=== PATIENT | male | born 1950 | race Caucasian/White ===

== ENCOUNTER 2021-11-21 18:02 | Inpatient (IN) | payer OTHER, MEDICARE ==
[~2021-11-21] VITALS: Ht 175.3 cm; Wt 131.5 kg
[2021-11-21] MEDS ORDERED: SODIUM CHLORIDE 0.9% 1000ML 1,000 ML IV STA (18:29)
[2021-11-21] MEDS ORDERED: Vancomycin IV 1.25 GM in SODIUM CHLORIDE 0.9% 250ML 250 ML IV ONE (18:30)
[2021-11-21] MEDS ORDERED: SODIUM CHLORIDE 0.9% 100 ML ONE (19:14)
[2021-11-21] MEDS ORDERED: PIPERACILLIN/TAZOBACTAM 3.375 GM VIAL ONE (19:14)
[2021-11-21] MEDS ORDERED: SODIUM CHLORIDE 0.9% 1000ML 1,000 ML ONE (19:14)
[2021-11-21] MEDS ORDERED: HYDROCODONE/APAP 5MG-325MG TAB PO ONE (20:00)
[2021-11-21] MEDS ORDERED: Vancomycin IV 1 GM VIAL ONE (20:03)
[2021-11-21] MEDS ORDERED: HYDROCODONE/APAP 5MG-325MG TAB ONE (20:16)
[2021-11-21] MEDS ORDERED: SODIUM CHLORIDE FLUSH 10 ML SYR INJ PRN (20:30)
[2021-11-21] MEDS ORDERED: DEXTROSE 50% SYRINGE 50 ML IV PRN (20:45)
[2021-11-21] MEDS ORDERED: ALBUTEROL1.25 MG/3 NEB (20:53)
[2021-11-21] MEDS ORDERED: FUROSEMIDE40 MG PO (20:53)
[2021-11-21] MEDS ORDERED: ENTRESTO 24 MG1 EACH PO (20:53)
[2021-11-21] MEDS ORDERED: ASPIRIN81 MG PO (20:53)
[2021-11-21] MEDS ORDERED: NEURONTIN300 MG PO (20:53)
[2021-11-21] MEDS ORDERED: CLOPIDOGREL75 MG PO (20:53)
[2021-11-21] MEDS ORDERED: BUMETANIDE1 MG PO (20:53)
[2021-11-21] MEDS ORDERED: LIPITOR20 MG PO (20:53)
[2021-11-21] MEDS ORDERED: GLIPIZIDE5 MG PO (20:53)
[2021-11-21] MEDS ORDERED: RANEXA1000 MG PO (20:53)
[2021-11-21] MEDS: INSULIN LISPRO 100 UNIT/1 ML 3ML VIAL SQ SCH (21:00)
[2021-11-21 22:05] VITALS: BP 130/59
[2021-11-21 22:10] VITALS: BP 130/59
[2021-11-21 22:15] VITALS: BP 130/59
[2021-11-21] MEDS: HYDROMORPHONE 1MG/1ML INJ IV PRN (22:15)
[2021-11-21] MEDS: ONDANSETRON HCL INJ 2MG/ML 2ML 2 MG/ML VIAL IV PRN (22:15)
[2021-11-21] MEDS ORDERED: ALBUTEROL SULFATE HFA 8GM INHALATION AEROSOL INH PRN (22:15)
[2021-11-21] MEDS ORDERED: Vancomycin IV 1 GM in SODIUM CHLORIDE 0.9% 250ML 250 ML IV SCH (22:15)
[2021-11-21] MEDS ORDERED: NOVOLOG100 UNIT/1 SC (22:47)
[2021-11-21] MEDS ORDERED: LANTUS 3ML100 UNITS/ SQ (22:47)
[2021-11-21] MEDS: INSULIN GLARGINE 100 UNITS/ML VIAL SQ SCH (23:00)
[2021-11-22] VITALS (7 sets, daily range): BP systolic 86–108; BP diastolic 42–55
[2021-11-22] MEDS ORDERED: MUCINEX600 MG PO (01:17)
[2021-11-22] MEDS ORDERED: NAPROXEN250 MG PO (01:17)
[2021-11-22] MEDS ORDERED: RANEXA500 MG PO (01:17)
[2021-11-22] MEDS ORDERED: PROVENTIL HFA6.7 GM INH (01:17)
[2021-11-22] MEDS: ONDANSETRON HCL INJ 2MG/ML 2ML 2 MG/ML VIAL IV PRN ×4 (03:00→22:00)
[2021-11-22] MEDS: HYDROMORPHONE 1MG/1ML INJ IV PRN ×5 (03:00→22:00)
[2021-11-22] MEDS: HYDROCODONE/APAP 5MG-325MG TAB PO PRN ×2 (05:37→12:04)
[2021-11-22] MEDS: INSULIN LISPRO 100 UNIT/1 ML 3ML VIAL SQ SCH ×4 (08:30→21:00)
[2021-11-22] MEDS: Vancomycin IV 1 GM in SODIUM CHLORIDE 0.9% 250ML 250 ML IV SCH (08:56)
[2021-11-22] MEDS: BUMETANIDE 1 MG TAB PO SCH ×2 (08:57→17:08)
[2021-11-22] MEDS: ASPIRIN 81 MG CHEW TAB PO SCH (08:57)
[2021-11-22] MEDS: VALSARTAN/SACUBITRIL 24MG/26MG 1 EA TAB PO SCH ×2 (08:58→17:08)
[2021-11-22] MEDS: RANOLAZINE 500 MG TABSR PO SCH ×2 (09:00→17:08)
[2021-11-22] MEDS ORDERED: GLIPIZIDE 5 MG TAB PO SCH (09:00)
[2021-11-22] MEDS ORDERED: GABAPENTIN 300 MG CAP PO SCH (09:00)
[2021-11-22] MEDS: CLOPIDOGREL BISULFATE 75 MG TAB PO SCH (09:00)
[2021-11-22 09:04] LABS: BASOPHILS # (AUTO) 0.1 (0.0-0.1); BASOPHILS % 0.7 % (0.0-1.0); EOSINOPHILS # (AUTO) 0.3 (0.0-0.4); EOSINOPHILS % 2.3 % (0.0-6.0); HEMATOCRIT 33.7 % (38.2-49.6); HEMOGLOBIN 10.9 g/dL (14.0-18.0); LYMPHOCYTES # (AUTO) 1.8 (1.0-3.2); LYMPHOCYTES % 12.4 % (18.0-39.1); MEAN CORPUSCULAR HGB CONC 32.3 g/dL (31-35); MEAN CORPUSCULAR VOLUME 98.8 fL (81-99); MONOCYTES # (AUTO) 0.9 (0.2-0.8); MONOCYTES % 6.1 % (4.4-11.3); NEUTROPHILS # (AUTO) 11.5 (2.1-6.9); NEUTROPHILS % 77.8 % (38.7-80.0); PLATELET COUNT 399 x10e3/uL (140-360); RED BLOOD COUNT 3.41 x10e6/uL (4.3-5.7)
[2021-11-22 09:23] LABS: ANION GAP 12.5 mmol/L (8-16); CALCIUM 8.8 mg/dL (8.4-10.2); CREATININE, SERUM 1.44 mg/dL (0.72-1.25); POTASSIUM 3.5 mmol/L (3.5-5.1)
[2021-11-22] MEDS ORDERED: HYDROMORPHONE 2MG/ML 2 MG/ML ML IV ONE (11:00)
[2021-11-22] MEDS: FUROSEMIDE 40 MG TAB PO SCH (17:08)
[2021-11-22] MEDS: GABAPENTIN 300 MG CAP PO SCH ×2 (17:08→21:43)
[2021-11-22] MEDS: ATORVASTATIN 20 MG TAB PO SCH (21:43)
[2021-11-22] MEDS: INSULIN GLARGINE 100 UNITS/ML VIAL SQ SCH (22:00)
[2021-11-23] VITALS (7 sets, daily range): BP systolic 89–113; BP diastolic 47–69
[2021-11-23] MEDS ORDERED: GLIPIZIDE 5 MG TAB PO SCH (07:30)
[2021-11-23] MEDS: INSULIN LISPRO 100 UNIT/1 ML 3ML VIAL SQ SCH ×4 (07:30→21:00)
[2021-11-23] MEDS: ONDANSETRON HCL INJ 2MG/ML 2ML 2 MG/ML VIAL IV PRN (08:15)
[2021-11-23] MEDS: HYDROMORPHONE 1MG/1ML INJ IV PRN ×3 (08:15→18:35)
[2021-11-23] MEDS: Vancomycin IV 1 GM in SODIUM CHLORIDE 0.9% 250ML 250 ML IV SCH (10:26)
[2021-11-23] MEDS: ASPIRIN 81 MG CHEW TAB PO SCH (10:27)
[2021-11-23] MEDS: BUMETANIDE 1 MG TAB PO SCH ×2 (10:27→17:24)
[2021-11-23] MEDS: VALSARTAN/SACUBITRIL 24MG/26MG 1 EA TAB PO SCH ×2 (10:30→17:00)
[2021-11-23] MEDS: FUROSEMIDE 40 MG TAB PO SCH (10:30)
[2021-11-23] MEDS: CLOPIDOGREL BISULFATE 75 MG TAB PO SCH (10:31)
[2021-11-23] MEDS: GABAPENTIN 300 MG CAP PO SCH ×3 (10:31→21:00)
[2021-11-23] MEDS: RANOLAZINE 500 MG TABSR PO SCH ×2 (10:31→17:00)
[2021-11-23] MEDS: INSULIN GLARGINE 100 UNITS/ML VIAL SQ SCH (21:00)
[2021-11-23] MEDS: ATORVASTATIN 20 MG TAB PO SCH (21:00)
== END 2021-11-23 23:32 | DRG 638 ==
LOC: FSED 18:19 → ERHOLD 20:28 → MED/SURG3 21:42
DX: E11.621 Type 2 diabetes mellitus with foot ulcer (principal); I13.0 Hypertensive heart and chronic kidney disease with heart failure and stage 1 through stage 4 chronic kidney disease, or unspecified chronic kidney disease; Z68.41 Body mass index [BMI] 40.0-44.9, adult; L03.115 Cellulitis of right lower limb; I83.218 Varicose veins of right lower extremity with both ulcer of other part of lower extremity and inflammation; L97.511 Non-pressure chronic ulcer of other part of right foot limited to breakdown of skin; E11.65 Type 2 diabetes mellitus with hyperglycemia; I87.8 Other specified disorders of veins; E11.22 Type 2 diabetes mellitus with diabetic chronic kidney disease; N18.30 Chronic kidney disease, stage 3 unspecified; I50.9 Heart failure, unspecified; J44.9 Chronic obstructive pulmonary disease, unspecified; G47.33 Obstructive sleep apnea (adult) (pediatric); I25.10 Atherosclerotic heart disease of native coronary artery without angina pectoris; E66.9 Obesity, unspecified; E11.42 Type 2 diabetes mellitus with diabetic polyneuropathy; Z20.822 Contact with and (suspected) exposure to COVID-19; Z79.82 Long term (current) use of aspirin; Z79.4 Long term (current) use of insulin
CPT/HCPCS: 29580; 36415; 80048; 80053; 80202; 82948; 83605; 85025; 87040; 94799; 99251; 99284; J1170; J1815; J2185; J2405; J2543; J3370; J7030; J7050